=== PATIENT | female | born 1950 | race Caucasian/White ===

== ENCOUNTER 2016-08-21 15:37 | Observation (INO) | payer MEDICARE, OTHER ==
[2016-08-21 16:09] LABS: Hematocrit 38.4 % (37.0-47.0); Hemoglobin 12.8 gm/dL (12.5-16.0); Mean Cell Volume 94.6 fl (78-100); Mean Corpuscular Hemoglobin 31.5 pg (27-31); Mean Corpuscular Hgb Conc 33.3 g/dl (32-36); Mean Platelet Volume 9.4 fl (6.0-9.5); Neutrophil # 5.4 K/mm3 (1.3-6.0); Neutrophil % 61.4 % (42-75.0); Platelet Count 360 K/mm3 (150-450); Red Blood Count 4.06 M/mm3 (4.2-5.4); Red Cell Distribution Width 12.5 % (11.5-14.0); White Blood Count 8.7 K/mm3 (4.0-10.5)
[2016-08-21 16:20] LABS: INR 0.96 INR (0.90-1.10); Partial Thrombolplastin Time 24.5 Seconds (24-32)
[2016-08-21 16:26] LABS: ALT 45 U/L (19-67); AST 24 U/L (0-48); Albumin * 3.3 gm/dl (3.4-5.0); Alkaline Phosphatase * 93 U/L (50-170); Anion Gap 12.9 mmol/L (6.8-13.8); BUN/Creatinine Ratio 9.4 (9.0-21.6); Bilirubin, Total 0.2 mg/dL (0.0-1.1); Blood Urea Nitrogen 10 mg/dL (3-23); Calcium * 8.8 mg/dL (7.9-10.9); Carbon Dioxide 29.2 mmol/L (24-32.6); Chloride 107 mmol/L (97-106); Glucose * 99 mg/dL (70-110); Potassium 4.1 mmol/L (3.4-4.6); Sodium 145 mmol/L (132-142); Total Protein 7.1 gm/dL (6.2-8.2); Troponin I Less than 0.017 ng/ml (0.00-0.10)
--- OUTSIDE RECORDS SUMMARY | 2016-08-21 16:27 | XMS REPORT | Continuity of Care Document ---
:1950 Author Organization [employer] [place] [address] Care Team Providers Name Role Phone Rosario Cooper Primary Care Provider [phone] Source Comments This disclosure is being made pursuant to the [employer] program and maynot contain all information available regarding this patient.[employer] Active Allergies and Adverse Reactions Allergen Noted Date Severity Reactions Comments Cephalexin 01/13/2014 Other (See Comments) Metoprolol Tartrate 01/13/2014 Other (See Comments) Current Medications Be aware that medications may not be up to date as of this document. Alwaysverify current medications with the patient. Prescription Sig. Disp. Refills Start Date End Date Status ALPRAZolam (XANAX) 0.25 MG Take 0.25 mg by Active tablet mouth. aspirin low dose (ASPIRIN) Chew 81 mg by Active 81 MG CHEW mouth. lisinopril Take 20 mg by Active (PRINIVIL,ZESTRIL) 20 MG mouth. tablet vilazodone HCl (VIIBRYD) Take 40 mg by Active 40 MG TABS mouth. Active Problems No known active problems Social History Tobacco Use Types Packs/Day Years Used Date Current Every Day Smoker Last Filed Vital Signs Vital Sign Reading Time Taken Blood Pressure 122/76 01/13/2014 4:50 PM [employer] Pulse 95 01/13/2014 4:50 PM [employer] Temperature 36.4 C (97.6 F) 01/13/2014 4:50 PM [employer] Respiratory Rate 20 01/13/2014 4:50 PM [employer] Height 1.6 m (5' 3") 01/13/2014 4:50 PM [employer] Weight 74.617 kg (164 lb 8 oz) 01/13/2014 4:50 PM [employer] Body Mass Index 29.15 01/13/2014 4:50 PM [employer] Oxygen Saturation 95% 01/13/2014 4:50 PM [employer] Plan of Care Health Maintenance Due Date Last Done Comments Tetanus/Pertussis (1 - Tdap) 1968 Colonoscopy 08/16/1999 Mammogram 08/16/1999 Well Adult Visit 08/16/1999 Zoster Vaccine 60+ 2009 Bone Density 2014 Pneumococcal Low/Medium Risk 65+ (1 of 2 - PCV13) 2014 Influenza Immunization (#1) 2015 Results from Last 3 Months Not on file Insurance Payer Benefit Plan / Group Subscriber ID Type Phone Address [facility] [id number] [address] [place] [address] Home: [address] [place], [place] [id number] [place] [address]
--- NOTE | 2016-08-21 16:35 | ERNOTE ---
Chest Pain/Cardiac HPI Date of Service: 08/21/16 Chief Complaint: Chest Pain Time Seen by Provider: 08/21/16 16:21 Source: patient Exam Limitations: no limitations Immunizations: IMMUNIZATION HX Immunizations Up to Date Yes History of Influenza Vaccine Yes Allergies/Adverse Reactions: Allergies cephalexin Allergy (Verified 08/21/16 15:59) Home Medications: HOME MEDICATIONS ALPRAZolam [Xanax] 0.25 mg PO QID 08/21/16 [Last Taken Unknown] Diphenoxylate HCl/Atrop Sulf [Lomotil] 2.5 mg PO QID 08/21/16 [Last Taken Unknown] Donepezil HCl [Aricept] 2.5 mg PO QID 08/21/16 [Last Taken Unknown] Lisinopril [Prinivil] 20 mg PO DAILY 08/21/16 [Last Taken Unknown] Memantine HCl 10 mg PO BID 08/21/16 [Last Taken Unknown] Mirtazapine [Remeron] 30 mg PO DAILY 08/21/16 [Last Taken Unknown] Narrative: Pt. comes in with c/o chest pain for unknown length of time just prior to arrival. Pt. has dementia so is poor historian. Pt. denies any SOB, NVD, fever , recent illness. NH where pt. resides called EMS and EMS administered 2 Nitro prior to arrival and pain is resolved at this time. Review of Systems - Review of Systems Constitutional: Present: no symptoms reported. Absent: recent illness, fever, chills, fatigue, malaise EYE: Present: no symptoms reported ENT: Present: no symptoms reported Respiratory: Present: no symptoms reported. Absent: shortness of breath, cough , wheezing Cardiology: Present: chest pain. Absent: palpitations, edema Gastrointestinal/Abdominal: Present: no symptoms reported. Absent: nausea, vomiting, diarrhea Genitourinary: Present: no symptoms reported Musculoskeletal: Present: no symptoms reported. Absent: back pain, joint pain Skin: Present: no symptoms reported Neurological: Present: no symptoms reported. Absent: headache, dizziness/light- headedness, numbness, tingling All Other Systems: All systems neg except as marked - Patient's Past Medical History Patient History - Medical: Anemia, Anxiety, Dementia, Depression, UTI'S Patient History - Cardiac/Respiratory: Hypertension, Hyperlipidemia Patient History - Cancer: Lung - Social History Smoking Status: Former smoker - Immunizations Immunizations Up to Date: Yes History of Influenza Vaccine: Yes Physical Exam - Physical Exam General Appearance: Present: wd/wn, alert, no apparent distress Eye Exam: Normal inspection: bilateral, PERRL: bilateral, EOMI: bilateral Ears, Nose, Throat: Present: normal ENT inspection, normal pharynx Neck: Present: normal inspection, nontender. Absent: lymphadenopathy (R), lymphadenopathy (L) Respiratory: Present: no respiratory distress, normal breath sounds, no accessory muscle use, chest nontender, lungs clear Cardiovascular/Chest: Present: regular rate, rhythm, no murmur, normal peripheral pulses Gastrointestinal/Abdominal: Present: normal bowel sounds, nontender, nondistended, soft, no organomegaly Back Exam: Present: normal inspection Extremity Exam: Present: normal inspection Neurological Exam: Present: alert, normal mood/affect, no motor/sensory deficits , disoriented to time, disoriented to place Skin Exam: Present: normal color, warm/dry. Absent: pallor, skin rash ED Progress - Date and Time Seen: Date and Time: 08/21/16 16:[address] Lomeli and pt. will be admitted for rule out AR - Results and Orders Patient's Lab Results:: I have reviewed the patient's lab results. - Vital Signs Patient's Vital Signs:: I have reviewed the patient's vital signs. Vital Signs: Vital Signs 08/21/16 08/21/16 08/21/16 15:42 15:49 16:18 Pulse Rate 75 76 85 Respiratory 14 12 12 Rate Blood Pressure 126/72 126/72 145/75 O2 Sat by Pulse 94 97 Oximetry - EKG EKG: NSR EKG read: Reviewed by me EKG Comments: interp by Dr Martel - Progress/Reassessment Chief Complaint: Chest Pain Progress:: Improved Departure - Departure Clinical Impression: Chest pain Qualifiers: Chest pain type: precordial pain Qualified Code(s): R07.2 - Precordial pain Disposition: [facility] Condition: Fair
--- OUTSIDE RECORDS SUMMARY | 2016-08-21 16:57 | XMS REPORT | Continuity of Care Document ---
:1950 Author Organization [employer] [place] [address] Care Team Providers Name Role Phone Rosario Cooper Primary Care Provider [phone] Source Comments This disclosure is being made pursuant to the [employer] program and maynot contain all information available regarding this patient.[employer] Active Allergies and Adverse Reactions Allergen Noted [...] Taken Blood Pressure 122/76 01/13/2014 4:50 PM [employer] Pulse 95 01/13/2014 4:50 PM [employer] Temperature 36.4 C (97.6 F) 01/13/2014 4:50 PM [employer] Respiratory Rate 20 01/13/2014 4:50 PM [employer] Height 1.6 m (5' 3") 01/13/2014 4:50 PM [employer] Weight 74.617 kg (164 lb 8 oz) 01/13/2014 4:50 PM [employer] Body Mass Index 29.15 01/13/2014 4:50 PM [employer] Oxygen Saturation 95% 01/13/2014 4:50 PM [employer] Plan of Care Health Maintenance Due Date Last Done Comments Tetanus/Pertussis (1 - Tdap) 1968 Colonoscopy 08/16/1999 Mammogram 08/16/1999 Well Adult Visit 08/16/1999 Zoster Vaccine 60+ 2009 Bone Density 2014 Pneumococcal Low/Medium Risk 65+ (1 of 2 - PCV13) 2014 Influenza Immunization (#1) 2015 Results from Last 3 Months Not on file Insurance Payer Benefit Plan / Group Subscriber ID Type Phone Address [facility] [id number] [address] [place] [address] Home: [address] [place], [place] [id number] [place] [address]
[2016-08-21] MEDS ORDERED: NITROGLYCERIN 0.4 MG/TAB BTL SL PRN (17:00)
[2016-08-21] MEDS ORDERED: MAGNESIUM HYDROXIDE 30 ML UDC PO PRN (19:44)
[2016-08-21] MEDS ORDERED: NYSTATIN 15 APPL BTL TP PRN (19:44)
[2016-08-21] MEDS ORDERED: ACETAMINOPHEN 325 MG TABLET PO PRN (19:44)
[2016-08-21] MEDS ORDERED: ALPRAZolam 1 MG TABLET PO PRN (19:44)
--- NOTE | 2016-08-21 20:45 | HP ---
<Blanca Asif - Last Filed: 08/21/16 23:16> Chief Complaint - Chief Complaint Date of Service: 08/21/16 Time of Service: 20:45 Chief Complaint: chest pain History of Present Illness: Hailee is a 66 year old female patient of Dr Aburto with a PMH of anxiety/ depression, HTN, HLD, dementia and history of lung cancer who presented to ER with c/o chest pain. Patient is pleasantly confused with a history of dementia and therefore is a poor historian but is able to tell be that the chest pain was sharp and she is not longer having chest pain at this time. denies any radiation of the chest pain. denies n/v or dyspnea. Patient to be admitted for chest pain of uncertain origin for serial troponins/ ekg with overnight telemetry monitoring. - Patient's Past Medical History Patient History - Medical: Anemia, Anxiety, Dementia, Depression, UTI'S, Other Patient History - Cardiac/Respiratory: Hypertension, Hyperlipidemia, Other Patient History - Cancer: Lung Patient History - Surgical Procedures: Other Patient History - Other: None LMP (females 10-50): Menopausal - Family History Parents Family History - Medical: History Unknown Family History - Cardiac/Respiratory: History Unknown Family History - Cancer: History Unknown - Social History Living Situations: group home Abuse History: No History of abuse Psych History: Hx of Anxiety, Hx of Depression Smoking Status: Former smoker Have you smoked in the past 12 months: No Do you dip or chew tobacco: No Smoking Stop Date: 02/13/10 Alcohol Use: none Drug Use: none - Immunizations Immunizations Up to Date: Yes History of Influenza Vaccine: Yes Review Of Systems (GEN) - Review of Systems Generalized/Overall Review: Present: No Symptoms Reported EENTM: Present: No Symptoms Reported Respiratory: Present: No Symptoms Reported Cardiac: Present: Chest Pain Abdominal: Present: No Symptoms Reported Genitourinary: Present: No Symptoms Reported Musculoskeletal: Present: No Symptoms Reported Neurological: Present: No Symptoms Reported Skin: Present: No Symptoms Reported Endocrine: Present: No Symptoms Reported Misc: All systems neg except as marked Immunizations: IMMUNIZATION HX Immunizations Up to Date Yes History of Influenza Vaccine Yes Allergies/Adverse Reactions: Allergies Allergy/AdvReac Type Severity Reaction Status Date / Time cephalexin [From Keflex] AdvReac Verified 08/21/16 17:50 metoprolol [From Toprol XL] AdvReac Verified 08/21/16 17:50 Home Medications: HOME MEDICATIONS ALPRAZolam [Xanax] 0.25 mg PO QID 08/21/16 [Last Taken Unknown] ALPRAZolam [Xanax] 1 mg PO TID PRN 08/21/16 [Last Taken Unknown] Acetaminophen [Tylenol] 650 mg PO Q6H PRN 08/21/16 [Last Taken Unknown] Acetaminophen [Tylenol] 650 mg PO QAM 08/21/16 [Last Taken Unknown] Dimethicone/Zinc Oxide [Yaritza Protect Cream] 1 appl TP PRN PRN 08/21/16 [Last Taken Unknown] Diphenoxylate HCl/Atrop Sulf [Lomotil] 2.5 mg PO QID 08/21/16 [Last Taken Unknown] Donepezil HCl [Aricept] 10 mg PO DAILY 08/21/16 [Last Taken Unknown] Lisinopril [Prinivil] 20 mg PO DAILY 08/21/16 [Last Taken Unknown] Magnesium Hydroxide [Milk of Magnesia] 30 ml PO DAILY PRN 08/21/16 [Last Taken Unknown] Memantine HCl 10 mg PO BID 08/21/16 [Last Taken Unknown] Mirtazapine [Remeron] 30 mg PO DAILY 08/21/16 [Last Taken Unknown] Nystatin [Mycostatin Powder] 1 appl TP BID PRN 08/21/16 [Last Taken Unknown] Oxymetazoline HCl [Nasal [place]] 2 spray INH BID PRN 08/21/16 [Last Taken Unknown ] Petrolatum,White [Aquaphor] 1 appl TP BID 08/21/16 [Last Taken Unknown] Pseudoephedrine HCl [Sudogest] 30 mg PO Q6H PRN 08/21/16 [Last Taken Unknown] Vilazodone HCl [Viibryd] 40 mg PO DAILY 08/21/16 [Last Taken Unknown] Exam - Exam Vital Signs: Vital Signs - Last Taken Temp 36.9 C 08/21/16 17:20 Pulse 76 08/21/16 17:20 Resp 20 08/21/16 17:20 BP 172/95 08/21/16 17:20 Pulse Ox 95 08/21/16 17:20 Constitutional: Present: Cooperative, No distress, Obese ENT Exam: Present: hearing grossly normal Eye Exam: bilateral eye: normal inspection Neck: Present: supple Back Exam: Present: no CVA tenderness, no vertebral tenderness Breasts: Present: Exam deferred Respiratory: Present: lungs clear, normal breath sounds, no respiratory distress , no accessory muscle use Cardiovascular/Chest: Present: normal peripheral pulses, regular rate, rhythm, no chest tenderness, no murmur Peripheral Pulses: dorsalis-pedis (R): 2+, dorsalis-pedis (L): 2+, radial (R): 2 +, radial (L): 2+ Abdomen: Present: soft, nontender, nondistended, obese /Rectal: Present: Exam deferred Extremity: Present: non-tender, normal inspection, no calf tenderness Skin Exam: Present: warm/dry, no cyanosis, pallor Diagnostic Studies: Laboratory Results WBC 8.7 K/mm3 (4.0-10.5) 08/21/16 16:00 RBC 4.06 M/mm3 (4.2-5.4) L 08/21/16 16:00 Hgb 12.8 gm/dL (12.5-16.0) 08/21/16 16:00 Hct 38.4 % (37.0-47.0) 08/21/16 16:00 MCV 94.6 fl (78-100) 08/21/16 16:00 MCH 31.5 pg (27-31) H 08/21/16 16:00 MCHC 33.3 g/dl (32-36) 08/21/16 16:00 RDW 12.5 % (11.5-14.0) 08/21/16 16:00 Plt Count 360 K/mm3 (150-450) 08/21/16 16:00 MPV 9.4 fl (6.0-9.5) 08/21/16 16:00 Immature Gran % (Auto) 0.30 % (0.001-0.429) 08/21/16 16:00 Immature Gran # (Auto) 0.03 K/mm3 (0.000-0.0310) 08/21/16 16:00 Neutrophils % 61.4 % (42-75.0) 08/21/16 16:00 Lymphocytes % 27.6 % (20-51) 08/21/16 16:00 Monocytes % 9.2 % (0.0-9) H 08/21/16 16:00 Eosinophils % 0.9 % (0.0-3.0) 08/21/16 16:00 Basophils % 0.6 % (0.0-1.0) 08/21/16 16:00 Nucleated RBC % 0.0 k/mm3 (0-1) 08/21/16 16:00 Neutrophils # 5.4 K/mm3 (1.3-6.0) 08/21/16 16:00 Lymphocytes # 2.4 k/mm3 (1.5-3.5) 08/21/16 16:00 Monocytes # 0.8 k/mm3 (0.0-1.0) 08/21/16 16:00 Eosinophils # 0.1 k/mm3 (0.0-0.7) 08/21/16 16:00 Absolute Basophils 0.1 k/mm3 (0.0-0.1) 08/21/16 16:00 PT 10.0 Seconds (9.4-11.4) 08/21/16 16:00 INR (Anticoag Therapy) 0.96 INR (0.90-1.10) 08/21/16 16:00 PTT ([facility]) 24.5 Seconds (24-32) 08/21/16 16:00 Sodium 145 mmol/L (132-142) H 08/21/16 16:00 Plasma Sodium 145 mmol/L (130-142) H 08/21/16 16:00 Potassium 4.1 mmol/L (3.4-4.6) 08/21/16 16:00 Chloride 107 mmol/L (97-106) H 08/21/16 16:00 Carbon Dioxide 29.2 mmol/L (24-32.6) 08/21/16 16:00 Anion Gap 12.9 mmol/L (6.8-13.8) 08/21/16 16:00 BUN 10 mg/dL (3-23) 08/21/16 16:00 Creatinine 1.06 mg/dL (0.4-1.4) 08/21/16 16:00 Est GFR (Non-Af Amer) 55 mL/min (60-130) L D 08/21/16 16:00 BUN/Creatinine Ratio 9.4 (9.0-21.6) 08/21/16 16:00 Random Glucose 99 mg/dL (70-110) 08/21/16 16:00 Calcium 8.8 mg/dL (7.9-10.9) 08/21/16 16:00 Calcium Adj for Albumin 9.0 mg/dL (8.4-10.2) 08/21/16 16:00 Total Bilirubin 0.2 mg/dL (0.0-1.1) 08/21/16 16:00 AST 24 U/L (0-48) 08/21/16 16:00 ALT 45 U/L (19-67) 08/21/16 16:00 Alkaline Phosphatase 93 U/L (50-170) 08/21/16 16:00 Troponin I Less than 0.017 ng/ml (0.00-0.10) 08/21/16 16:00 Total Protein 7.1 gm/dL (6.2-8.2) 08/21/16 16:00 Albumin 3.3 gm/dl (3.4-5.0) L 08/21/16 16:00 Assessment/Plan - Narrative Narrative: Chest pain of uncertain origin - currently chest pain free - monitor on tele - trend trop / ekg - if trop / ekg wnl, plan d/c in am - recommend echo and stress test outpatient - vitals signs q 4 hours dementia - stable but makes patient a poor historian - continue home meds anxiety / depression - continue home meds - prn anti-anxiet meds also ordered HTN - vital signs q 4 hours Code status: Full code VTE: early ambulation gi proph: protonix po. - Assessment/Plan (1) Chest pain of uncertain etiology Problem: Acute (2) Dementia Problem: Chronic QualifierTitle: Dementia type: unspecified type Dementia behavioral disturbance: without behavioral disturbance Qualified Code(s): F03.90 - Unspecified dementia without behavioral disturbance (3) Anxiety and depression Problem: Chronic (4) HTN (hypertension) Problem: Chronic QualifierTitle: Hypertension type: essential hypertension Qualified Code( s): I10 - Essential (primary) hypertension (5) HLD (hyperlipidemia) Problem: Chronic QualifierTitle: Hyperlipidemia type: unspecified Qualified Code(s): E78.5 - Hyperlipidemia, unspecified <Wellington Estrada - Last Filed: 08/22/16 12:40> Immunizations: IMMUNIZATION HX Immunizations Up to Date Yes History of Influenza Vaccine Yes Exam - Exam Vital Signs: Vital Signs - Last Taken Temp 36.6 C 08/22/16 10:18 Pulse 99 08/22/16 11:16 Resp 20 08/22/16 10:18 BP 148/87 08/22/16 10:18 Pulse Ox 94 08/22/16 10:18 Diagnostic Studies: Laboratory Results WBC 8.7 K/mm3 (4.0-10.5) 08/21/16 16:00 RBC 4.06 M/mm3 (4.2-5.4) L 08/21/16 16:00 Hgb 12.8 gm/dL (12.5-16.0) 08/21/16 16:00 Hct 38.4 % (37.0-47.0) 08/21/16 16:00 MCV 94.6 fl (78-100) 08/21/16 16:00 MCH 31.5 pg (27-31) H 08/21/16 16:00 MCHC 33.3 g/dl (32-36) 08/21/16 16:00 RDW 12.5 % (11.5-14.0) 08/21/16 16:00 Plt Count 360 K/mm3 (150-450) 08/21/16 16:00 MPV 9.4 fl (6.0-9.5) 08/21/16 16:00 Immature Gran % (Auto) 0.30 % (0.001-0.429) 08/21/16 16:00 Immature Gran # (Auto) 0.03 K/mm3 (0.000-0.0310) 08/21/16 16:00 Neutrophils % 61.4 % (42-75.0) 08/21/16 16:00 Lymphocytes % 27.6 % (20-51) 08/21/16 16:00 Monocytes % 9.2 % (0.0-9) H 08/21/16 16:00 Eosinophils % 0.9 % (0.0-3.0) 08/21/16 16:00 Basophils % 0.6 % (0.0-1.0) 08/21/16 16:00 Nucleated RBC % 0.0 k/mm3 (0-1) 08/21/16 16:00 Neutrophils # 5.4 K/mm3 (1.3-6.0) 08/21/16 16:00 Lymphocytes # 2.4 k/mm3 (1.5-3.5) 08/21/16 16:00 Monocytes # 0.8 k/mm3 (0.0-1.0) 08/21/16 16:00 Eosinophils # 0.1 k/mm3 (0.0-0.7) 08/21/16 16:00 Absolute Basophils 0.1 k/mm3 (0.0-0.1) 08/21/16 16:00 PT 10.0 Seconds (9.4-11.4) 08/21/16 16:00 INR (Anticoag Therapy) 0.96 INR (0.90-1.10) 08/21/16 16:00 PTT ([facility]) 24.5 Seconds (24-32) 08/21/16 16:00 Sodium 145 mmol/L (132-142) H 08/21/16 16:00 Plasma Sodium 145 mmol/L (130-142) H 08/21/16 16:00 Potassium 4.1 mmol/L (3.4-4.6) 08/21/16 16:00 Chloride 107 mmol/L (97-106) H 08/21/16 16:00 Carbon Dioxide 29.2 mmol/L (24-32.6) 08/21/16 16:00 Anion Gap 12.9 mmol/L (6.8-13.8) 08/21/16 16:00 BUN 10 mg/dL (3-23) 08/21/16 16:00 Creatinine 1.06 mg/dL (0.4-1.4) 08/21/16 16:00 Est GFR (Non-Af Amer) 55 mL/min (60-130) L D 08/21/16 16:00 BUN/Creatinine Ratio 9.4 (9.0-21.6) 08/21/16 16:00 Random Glucose 99 mg/dL (70-110) 08/21/16 16:00 Calcium 8.8 mg/dL (7.9-10.9) 08/21/16 16:00 Calcium Adj for Albumin 9.0 mg/dL (8.4-10.2) 08/21/16 16:00 Total Bilirubin 0.2 mg/dL (0.0-1.1) 08/21/16 16:00 AST 24 U/L (0-48) 08/21/16 16:00 ALT 45 U/L (19-67) 08/21/16 16:00 Alkaline Phosphatase 93 U/L (50-170) 08/21/16 16:00 Troponin I Less than 0.017 ng/ml (0.00-0.10) 08/21/16 21:55 Total Protein 7.1 gm/dL (6.2-8.2) 08/21/16 16:00 Albumin 3.3 gm/dl (3.4-5.0) L 08/21/16 16:00 Assessment/Plan - Procedures Results: History unreliable, but I agree with the plan to rule out as possible ischemic cause for chest pain. I supervised our nurse practitioner hospitalist care for this patient.
[2016-08-21] MEDS ORDERED: [UNRECOGNIZED DRUG - OTHER] TP SCH (21:00)
[2016-08-21] MEDS: MEMANTINE HCL 10 MG TABLET PO SCH (21:39)
[2016-08-21] MEDS: ALPRAZolam 0.25 MG TABLET PO SCH (21:39)
[2016-08-22] MEDS ORDERED: PANTOPRAZOLE SODIUM 40 MG TABLET.EC PO SCH (07:00)
[2016-08-22] MEDS ORDERED: MIRTAZAPINE 15 MG TABLET PO SCH (09:00)
[2016-08-22] MEDS ORDERED: HYDROPHILIC OINTMENT 454 APPL JAR TP SCH (09:00)
[2016-08-22] MEDS ORDERED: LISINOPRIL 20 MG TABLET PO SCH (09:00)
[2016-08-22] MEDS: MEMANTINE HCL 10 MG TABLET PO SCH (09:00)
[2016-08-22] MEDS ORDERED: DONEPEZIL HCL 10 MG TABLET PO SCH (09:00)
[2016-08-22] MEDS: ALPRAZolam 0.25 MG TABLET PO SCH ×2 (09:01→13:46)
[2016-08-22 10:19] VITALS: BP 148/87
--- NOTE | 2016-08-22 12:49 | DS ---
(1) Chest pain of uncertain etiology Problem: Acute (2) Anxiety and depression Problem: Chronic (3) Dementia Problem: Chronic Qualifiers: Dementia type: unspecified type Dementia behavioral disturbance: without behavioral disturbance Qualified Code(s): F03.90 - Unspecified dementia without behavioral disturbance (4) HLD (hyperlipidemia) Problem: Chronic Qualifiers: Hyperlipidemia type: unspecified Qualified Code(s): E78.5 - Hyperlipidemia , unspecified (5) HTN (hypertension) Problem: Chronic Qualifiers: Hypertension type: essential hypertension Qualified Code(s): I10 - Essential (primary) hypertension Description of Stay: Remained stable and comfortable while in the hospital. No recurrence of chest pain. Sequential EKGs and troponins not consistent with ischemic heart disease. She may return to [facility]. Procedures Performed: none Discharge Disposition: [facility] Disposition: [facility] [place] Condition: Good Discharge Activity: Activity as tolerated Discharge Diet: General/regular food Referrals: Wellington Estrada MD [Primary Care Provider] - Problem Oriented Discharge Instructions to Patient/Family: Chest Pain Observation Complete Home Medications List: Complete Home Medication List: ALPRAZolam [Xanax] 0.25 mg PO QID 08/21/16 ALPRAZolam [Xanax] 1 mg PO TID PRN 08/21/16 Acetaminophen [Tylenol] 650 mg PO Q6H PRN 08/21/16 Dimethicone/Zinc Oxide [Yaritza Protect Cream] 1 appl TP PRN PRN 08/21/16 Donepezil HCl [Aricept] 10 mg PO DAILY 08/21/16 Lisinopril [Prinivil] 20 mg PO DAILY 08/21/16 Magnesium Hydroxide [Milk of Magnesia] 30 ml PO DAILY PRN 08/21/16 Memantine HCl 10 mg PO BID 08/21/16 Mirtazapine [Remeron] 30 mg PO DAILY 08/21/16 Nystatin [Mycostatin Powder] 1 appl TP BID PRN 08/21/16 Petrolatum,White [Aquaphor] 1 appl TP BID 08/21/16 Vilazodone HCl [Viibryd] 40 mg PO DAILY 08/21/16
[2016-08-22] MEDS ORDERED: ASPIRIN 81 MG TAB.CHEW PO SCH (17:01)
== END 2016-08-22 14:10 ==
LOC: ER 15:37 → MS 16:53
PROVIDERS: ADMIT Internal Medicine; ATTEND Allergy & Immunology
DX: R07.2 Precordial pain (principal); F03.90 Unspecified dementia, unspecified severity, without behavioral disturbance, psychotic disturbance, mood disturbance, and anxiety; F41.8 Other specified anxiety disorders; I10 Essential (primary) hypertension; E78.5 Hyperlipidemia, unspecified
CPT/HCPCS: 36415; 71010; 80053; 84484; 85025; 85610; 85730; 87045; 87046; 87081; 93005; 99283; G0378

== ENCOUNTER 2016-10-27 12:21 | Observation (INO) | payer MEDICARE, OTHER ==
[2016-10-27] MEDS ORDERED: NORMAL SALINE 1,000 ML IV ONE (12:47)
[2016-10-27 13:15] LABS: Hematocrit 36.7 % (37.0-47.0); Hemoglobin 12.1 gm/dL (12.5-16.0); Mean Cell Volume 94.1 fl (78-100); Mean Platelet Volume 9.6 fl (6.0-9.5); Neutrophil # 11.6 K/mm3 (1.3-6.0); Neutrophil % 78.8 % (42-75.0); Platelet Count 351 K/mm3 (150-450); Red Cell Distribution Width 12.2 % (11.5-14.0); White Blood Count 14.8 K/mm3 (4.0-10.5)
[2016-10-27 13:37] LABS: Albumin * 2.9 gm/dl (3.4-5.0); Anion Gap 15.3 mmol/L (6.8-13.8); BUN/Creatinine Ratio 25.3 (9.0-21.6); Bilirubin, Total 1.1 mg/dL (0.0-1.1); Ca. Corrected For Albumin 9.7 mg/dL (8.4-10.2); Calcium * 9.1 mg/dL (7.9-10.9); Carbon Dioxide 22.7 mmol/L (24-32.6); TSH * 0.974 uIU/mL (0.358-3.74); Total Protein 7.6 gm/dL (6.2-8.2)
[2016-10-27 13:46] LABS: Urine Bilirubin Negative (NEGATIVE); Urine Blood 50 /ul (NEGATIVE); Urine Ketone 5 mg/dL (NEGATIVE); Urine Nitrite Negative (NEGATIVE); Urine Protein 30 mg/dL (NEGATIVE); Urine Specific Gravity >=1.030 SP.GR. (1.005-1.010); Urine Urobilinogen >=8.0 EU/dl (NORMAL); Urine pH 5.5 pH (5.0-7.0)
[2016-10-27] MEDS ORDERED: LEVOFLOXACIN/D5W 500 MG/100 ML BAG IV SCH (14:00)
[2016-10-27] MEDS ORDERED: NORMAL SALINE 1,000 ML IV PRN ×2 (14:02→16:40)
[2016-10-27 14:10] LABS: Urine Appearance Cloudy; Urine Bacteria 2+; Urine Color Dark Yellow; Urine RBC 0-5 /hpf (0-5)
--- NOTE | 2016-10-27 14:16 | ERNOTE ---
Neuro HPI ER Record Presenting Symptoms: confusion Time Seen by Provider: 10/27/16 12:44 Source: EMR, EMS, RN notes reviewed - patient has severe dementia however snf staff where the patient resides has noticed that she is more "out of it" than is normal for this patient. They deny any fevers or chills she was begun this morning on antibiotics for a UTI. Immunizations: IMMUNIZATION HX Immunizations Up to Date Yes History of Influenza Vaccine Yes Allergies/Adverse Reactions: Allergies Allergy/AdvReac Type Severity Reaction Status Date / Time cephalexin [From Keflex] AdvReac Verified 08/21/16 17:50 metoprolol [From Toprol XL] AdvReac Verified 08/21/16 17:50 Home Medications: HOME MEDICATIONS ALPRAZolam [Xanax] 0.25 mg PO QID 08/21/16 [Last Taken Unknown] ALPRAZolam [Xanax] 1 mg PO TID PRN 08/21/16 [Last Taken Unknown] Acetaminophen [Tylenol] 650 mg PO Q6H PRN 08/21/16 [Last Taken Unknown] Dimethicone/Zinc Oxide [Yaritza Protect Cream] 1 appl TP PRN PRN 08/21/16 [Last Taken Unknown] Donepezil HCl [Aricept] 10 mg PO DAILY 08/21/16 [Last Taken Unknown] Lisinopril [Prinivil] 20 mg PO DAILY 08/21/16 [Last Taken Unknown] Magnesium Hydroxide [Milk of Magnesia] 30 ml PO DAILY PRN 08/21/16 [Last Taken Unknown] Memantine HCl 10 mg PO BID 08/21/16 [Last Taken Unknown] Mirtazapine [Remeron] 30 mg PO DAILY 08/21/16 [Last Taken Unknown] Nystatin [Mycostatin Powder] 1 appl TP BID PRN 08/21/16 [Last Taken Unknown] Petrolatum,White [Aquaphor] 1 appl TP BID 08/21/16 [Last Taken Unknown] Vilazodone HCl [Viibryd] 40 mg PO DAILY 08/21/16 [Last Taken Unknown] - History of Present Illness Narrative: Patient has more confusion than usual. History is per snf staff. There is no history of fever however patient was recently diagnosed with a UTI and placed on Levaquin this morning Review of Systems - Narrative Narrative: Review of systems is extremely difficult in this patient as she says no to everything, this patient is severely demented. No family or residential nurse is available at bedside to help out with review of systems. - Review of Systems Constitutional: Present: weakness, malaise EYE: Present: no symptoms reported ENT: Present: no symptoms reported Respiratory: Present: no symptoms reported Cardiology: Present: no symptoms reported Gastrointestinal/Abdominal: Present: no symptoms reported Genitourinary: Present: no symptoms reported - Patient's Past Medical History Patient History - Medical: Anemia, Anxiety, Dementia, Depression, UTI'S, Other Patient History - Cardiac/Respiratory: Hypertension, Hyperlipidemia, Other Patient History - Cancer: Lung Patient History - Surgical Procedures: Other Patient History - Other: None LMP (females 10-50): Menopausal - Family History Parents Family History - Medical: History Unknown Family History - Cardiac/Respiratory: History Unknown Family History - Cancer: History Unknown - Social History Living Situations: snf Abuse History: No History of abuse Psych History: Hx of Anxiety, Hx of Depression Alcohol Use: none Drug Use: none - Immunizations Immunizations Up to Date: Yes History of Influenza Vaccine: Yes Physical Exam - Physical Exam General Appearance: Present: wd/wn, other - patient is morbidly obese she has dementia she stares at the wall she follows simple commands she does not speak Head Exam: Present: normal inspection, no evidence of injury Eye Exam: Normal inspection: bilateral, PERRL: bilateral, EOMI: bilateral Ears, Nose, Throat: Present: normal ENT inspection Neck: Present: normal inspection, nontender, supple, full range of motion Respiratory: Present: no respiratory distress, normal breath sounds, no accessory muscle use, chest nontender, lungs clear Cardiovascular/Chest: Present: regular rate, rhythm, no murmur, normal peripheral pulses Gastrointestinal/Abdominal: Present: normal bowel sounds, soft, other - abdomen is obese Back Exam: Present: normal inspection Extremity Exam: Present: normal inspection, normal range of motion Neurological Exam: Present: other - patient is awake she speaks simple simple sentences when she is not sleeping otherwise she does not engage in speech as she is demented ED Progress - Vital Signs Vital Signs: Vital Signs 10/27/16 10/27/16 12:21 13:16 Temperature 38.2 C H 38.2 C H Pulse Rate 111 H 112 H Respiratory 19 Rate Blood Pressure 132/70 109/58 O2 Sat by Pulse 100 100 Oximetry - Progress/Reassessment Chief Complaint: Altered Mental Status Plan - Plan Plan: Since left gases is 2.1 at this time. At this time we will administer normal saline 30 mils per kilogram IV and Levaquin 500 mg IV blood cultures are pending Dr. Ely Manzanares was consultative intercourse of this patient and he will graciously admit the patient to the floor for sepsis and possible urosepsis. Departure Clinical Impression: Sepsis Qualifiers: Sepsis type: sepsis due to unspecified organism Qualified Code(s): A41.9 - Sepsis, unspecified organism - Departure Disposition: [facility] Condition: Fair Referrals: Wellington Estrada MD [Primary Care Provider] -
[2016-10-27] MEDS ORDERED: MAGNESIUM HYDROXIDE 30 ML UDC PO PRN (16:03)
[2016-10-27] MEDS ORDERED: ALPRAZolam 1 MG TABLET PO PRN (16:03)
[2016-10-27] MEDS ORDERED: ZINC OXIDE 60 APPL TUBE TP PRN (16:03)
[2016-10-27] MEDS ORDERED: ACETAMINOPHEN 325 MG TABLET PO PRN (16:03)
[2016-10-27] MEDS ORDERED: NYSTATIN 15 APPL BTL TP PRN (16:03)
[2016-10-27] MEDS ORDERED: ALPRAZolam 0.25 MG TABLET PO SCH (17:00)
[2016-10-27] MEDS ORDERED: ENOXAPARIN SODIUM 40 MG/0.4 ML SYRG SC SCH (18:00)
--- NOTE | 2016-10-27 18:26 | HP ---
Chief Complaint - Chief Complaint Date of Service: 10/27/16 Time of Service: 18:19 Chief Complaint: Fever History of Present Illness: This is a 66 year old demented resident of [facility] [place]. She is demented and poorly responsive. Today she was more confused than normal, has blood in her urine and a temperature of 100.7. She was brought by ambulance to the [facility] ER where a diagnosis of UTI was made. Cultures were obtained, she was given IV antibiotics and IV fluids. Selected Entries 10/27/16 12:21 Temperature 38.2 C H Temperature Temporal Artery Source Scan Pulse Rate 111 H Blood Pressure 90 Mean Laboratory Tests 10/27/16 10/27/16 13:15 13:15 WBC 14.8 H Lactic Acid, Venous 2.1 H* - Patient's Past Medical History Patient History - Medical: Anemia, Anxiety, Dementia, Depression, UTI'S Patient History - Cardiac/Respiratory: Hypertension, Hyperlipidemia, Other Patient History - Cancer: Lung Patient History - Surgical Procedures: Other Patient History - Other: None LMP (females 10-50): Menopausal - Family History Parents Family History - Medical: History Unknown Family History - Cardiac/Respiratory: History Unknown Family History - Cancer: History Unknown - Social History Living Situations: [facility] Abuse History: No History of abuse Psych History: Hx of Anxiety, Hx of Depression Smoking Status: Former smoker Have you smoked in the past 12 months: No Alcohol Use: none Drug Use: none - Immunizations Immunizations Up to Date: Yes History of Influenza Vaccine: Yes Review Of Systems (GEN) - Review of Systems Generalized/Overall Review: Present: No Symptoms Reported - can't provide, demented. Immunizations: IMMUNIZATION HX Immunizations Up to Date Yes History of Influenza Vaccine Yes Allergies/Adverse Reactions: Allergies Allergy/AdvReac Type Severity Reaction Status Date / Time cephalexin [From Keflex] AdvReac Verified 10/27/16 16:26 metoprolol [From Toprol XL] AdvReac Verified 10/27/16 16:26 Home Medications: HOME MEDICATIONS ALPRAZolam [Xanax] 1 mg PO TID PRN 08/21/16 [Last Taken Unknown] Mirtazapine [Remeron] 30 mg PO DAILY 08/21/16 [Last Taken Unknown] ALPRAZolam [Xanax] 0.5 mg PO QID 10/27/16 [Last Taken Unknown] Aspirin [Aspirin EC] 325 mg PO DAILY 10/27/16 [Last Taken Unknown] Atorvastatin Calcium 40 mg PO DAILY 10/27/16 [Last Taken Unknown] Donepezil HCl [Aricept] 10 mg PO DAILY 10/27/16 [Last Taken Unknown] Gentamicin Sulfate [Gentamicin 0.3% Ophthalmic Solution] 1 drop OP HS 10/27/16 [ Last Taken Unknown] Isosorbide Mononitrate [Imdur] 30 mg PO DAILY 10/27/16 [Last Taken Unknown] Lisinopril [Zestril] 20 mg PO DAILY 10/27/16 [Last Taken Unknown] Memantine HCl [Namenda] 10 mg PO DAILY 10/27/16 [Last Taken Unknown] Vilazodone HCl [Viibryd] 40 mg PO DAILY 10/27/16 [Last Taken Unknown] Exam - Exam Vital Signs: Vital Signs - Last Taken Selected Entries 10/27/16 15:42 Temperature 36.8 C Temperature Temporal Artery Source Scan Pulse Rate 93 Pulse Rhythm Regular Pulse Strength Normal Respiratory 20 Rate Respiratory Normal Depth Respiratory Normal Effort Non-Labored Respiratory Normal Pattern Blood Pressure 104/59 Blood Pressure Supine Position O2 Sat by Pulse 95 Oximetry Oxygen Delivery Room Air Method Constitutional: Present: Alert, Well developed, No distress, Obese ENT Exam: Present: normal ENT inspection Eye Exam: bilateral eye: normal inspection, PERRL, EOMI Neck: Present: normal inspection Back Exam: Present: normal inspection, no CVA tenderness, no vertebral tenderness Respiratory: Present: normal breath sounds, no respiratory distress Cardiovascular/Chest: Present: regular rate, rhythm, no murmur Abdomen: Present: Normal bowel sounds, soft, nontender, nondistended, no rebound tenderness, no hepatospenomegaly, no masses, obese Extremity: Present: normal inspection, no pedal edema Skin Exam: Present: normal color, warm/dry, no cyanosis Lymphatic: Present: no adenopathy Neurologic: Present: alert Appearance: Present: appropriate appearance, neat, disheveled, impaired insight , impaired recent memory, impaired remote memory Eye contact: Present: belligerent, uncooperative. Absent: cooperative Thoughts: Present: incoherent Diagnostic Studies: Laboratory Results WBC 14.8 K/mm3 (4.0-10.5) H 10/27/16 13:15 RBC 3.90 M/mm3 (4.2-5.4) L 10/27/16 13:15 Hgb 12.1 gm/dL (12.5-16.0) L 10/27/16 13:15 Hct 36.7 % (37.0-47.0) L 10/27/16 13:15 MCV 94.1 fl (78-100) 10/27/16 13:15 MCH 31.0 pg (27-31) 10/27/16 13:15 MCHC 33.0 g/dl (32-36) 10/27/16 13:15 RDW 12.2 % (11.5-14.0) 10/27/16 13:15 Plt Count 351 K/mm3 (150-450) 10/27/16 13:15 MPV 9.6 fl (6.0-9.5) H 10/27/16 13:15 Immature Gran % (Auto) 0.50 % (0.001-0.429) H 10/27/16 13:15 Immature Gran # (Auto) 0.07 K/mm3 (0.000-0.0310) H 10/27/16 13:15 Neutrophils % 78.8 % (42-75.0) H 10/27/16 13:15 Lymphocytes % 10.7 % (20-51) L 10/27/16 13:15 Monocytes % 9.5 % (0.0-9) H 10/27/16 13:15 Eosinophils % 0.2 % (0.0-3.0) 10/27/16 13:15 Basophils % 0.3 % (0.0-1.0) 10/27/16 13:15 Nucleated RBC % 0.0 k/mm3 (0-1) 10/27/16 13:15 Neutrophils # 11.6 K/mm3 (1.3-6.0) H 10/27/16 13:15 Lymphocytes # 1.6 k/mm3 (1.5-3.5) 10/27/16 13:15 Monocytes # 1.4 k/mm3 (0.0-1.0) H 10/27/16 13:15 Eosinophils # 0.0 k/mm3 (0.0-0.7) 10/27/16 13:15 Absolute Basophils 0.1 k/mm3 (0.0-0.1) 10/27/16 13:15 Sodium 138 mmol/L (132-142) 10/27/16 13:15 Plasma Sodium 138 mmol/L (130-142) 10/27/16 13:15 Potassium 4.0 mmol/L (3.4-4.6) 10/27/16 13:15 Chloride 104 mmol/L (97-106) 10/27/16 13:15 Carbon Dioxide 22.7 mmol/L (24-32.6) L 10/27/16 13:15 Anion Gap 15.3 mmol/L (6.8-13.8) H 10/27/16 13:15 BUN 24 mg/dL (3-23) H D 10/27/16 13:15 Creatinine 0.95 mg/dL (0.4-1.4) 10/27/16 13:15 Est GFR (Non-Af Amer) 62 mL/min (60-130) 10/27/16 13:15 BUN/Creatinine Ratio 25.3 (9.0-21.6) H 10/27/16 13:15 Random Glucose 97 mg/dL (70-110) 10/27/16 13:15 Lactic Acid, Venous 0.9 mmol/L (0.4-1.9) 10/27/16 15:47 Calcium 9.1 mg/dL (7.9-10.9) 10/27/16 13:15 Calcium Adj for Albumin 9.7 mg/dL (8.4-10.2) 10/27/16 13:15 Total Bilirubin 1.1 mg/dL (0.0-1.1) 10/27/16 13:15 AST 26 U/L (0-48) 10/27/16 13:15 ALT 23 U/L (19-67) 10/27/16 13:15 Alkaline Phosphatase 128 U/L (50-170) 10/27/16 13:15 B-Natriuretic Peptide 65 pg/mL (5-325) 10/27/16 Unknown Total Protein 7.6 gm/dL (6.2-8.2) 10/27/16 13:15 Albumin 2.9 gm/dl (3.4-5.0) L 10/27/16 13:15 TSH 0.974 uIU/mL (0.358-3.74) 10/27/16 13:15 Urine Color Dark yellow 10/27/16 13:31 Urine Appearance Cloudy 10/27/16 13:31 Urine pH 5.5 pH (5.0-7.0) 10/27/16 13:31 Ur Specific [place] >=1.030 SP.GR. (1.005-1.010) 10/27/16 13:31 Urine Protein 30 mg/dL (NEGATIVE) H 10/27/16 13:31 Urine Glucose (UA) 100 mg/dL (NEGATIVE) H 10/27/16 13:31 Urine Ketones 5 mg/dL (NEGATIVE) 10/27/16 13:31 Urine Blood 50 /ul (NEGATIVE) H 10/27/16 13:31 Urine Nitrate Negative (NEGATIVE) 10/27/16 13:31 Urine Bilirubin Negative mg/dl (NEGATIVE) 10/27/16 13:31 Prot Sulfosalicylic Acd 1+ mg/dL (0) 10/27/16 13:31 Urine Urobilinogen >=8.0 EU/dl (NORMAL) H 10/27/16 13:31 Ur Leukocyte Esterase 100 /ul (NEGATIVE) H 10/27/16 13:31 Urine RBC 0-5 /hpf (0-5) 10/27/16 13:31 Urine WBC 5-10 /hpf (0-5) H 10/27/16 13:31 Ur Epithelial Cells 0-5 /hpf (0-5) 10/27/16 13:31 Urine Bacteria 2+ (NONE) H 10/27/16 13:31 Urine Culture Comments Culture to follow 10/27/16 13:31 Assessment/Plan - Assessment/Plan (1) UTI (urinary tract infection) Assessment: IV antibiotics. IV fluids. Follow labs. Estimate stay of 3 days. Problem: Acute (2) Dementia Problem: Chronic Qualifiers:
[2016-10-27] MEDS: POTASSIUM CHLORIDE 10 MEQ in NORMAL SALINE 1,000 ML IV SCH (18:30)
[2016-10-27] MEDS: HYDROPHILIC OINTMENT 454 APPL JAR TP SCH (20:07)
[2016-10-27] MEDS: MEMANTINE HCL 10 MG TABLET PO SCH (20:35)
[2016-10-27] MEDS: ALPRAZolam 0.5 MG TABLET PO SCH (20:35)
[2016-10-27] MEDS ORDERED: MIRTAZAPINE 15 MG TABLET PO SCH (21:00)
[2016-10-27] MEDS ORDERED: GENTAMICIN SULFATE 50 DROP BTL OP SCH (21:00)
[2016-10-27] MEDS ORDERED: ATORVASTATIN CALCIUM 40 MG TABLET PO SCH (21:00)
[2016-10-28] MEDS: POTASSIUM CHLORIDE 10 MEQ in NORMAL SALINE 1,000 ML IV SCH (04:17)
[2016-10-28 06:17] LABS: Hematocrit 38.2 % (37.0-47.0); Mean Cell Volume 97.9 fl (78-100); Mean Corpuscular Hemoglobin 30.8 pg (27-31); Mean Corpuscular Hgb Conc 31.4 g/dl (32-36); Mean Platelet Volume 10.1 fl (6.0-9.5); Neutrophil # 7.4 K/mm3 (1.3-6.0); Neutrophil % 71.1 % (42-75.0); Platelet Count 289 K/mm3 (150-450); Red Cell Distribution Width 12.3 % (11.5-14.0); White Blood Count 10.4 K/mm3 (4.0-10.5)
[2016-10-28 06:54] LABS: Albumin * 2.4 gm/dl (3.4-5.0); Anion Gap 16.5 mmol/L (6.8-13.8); BUN/Creatinine Ratio 15.7 (9.0-21.6); Ca. Corrected For Albumin 9.3 mg/dL (8.4-10.2); Calcium * 8.3 mg/dL (7.9-10.9); Carbon Dioxide 18.6 mmol/L (24-32.6); Potassium 4.1 mmol/L (3.4-4.6); Total Protein 7.1 gm/dL (6.2-8.2)
[2016-10-28 07:23] LABS: T4 Free * 1.44 ng/dL (0.76-1.46); TSH * 1.819 uIU/mL (0.358-3.74)
--- NOTE | 2016-10-28 08:03 | PN ---
Subjective - Date and Time Seen Date: 10/28/16 Time: 08:00 Subjective Narrative: Oriented only to self. Denies any problems. Objective - Review of Systems Generalized/Overall Review: Reports: No Symptoms Reported EENTM: Reports: No Symptoms Reported Respiratory: Reports: No Symptoms Reported Cardiac: Reports: No Symptoms Reported Abdominal: Reports: No Symptoms Reported Genitourinary Symptoms: Reports: No Symptoms Reported Musculoskeletal Complaints: Reports: No Symptoms Reported Neurological: Reports: No Symptoms Reported Skin: Reports: No Symptoms Reported Endocrine: Reports: No Symptoms Reported Misc: All systems neg except as marked - Vitals Vitals: Last Vital Signs Selected Entries 10/28/16 10/28/16 02:36 05:09 Temperature 36.5 C Temperature Temporal Artery Source Scan Pulse Rate 93 64 Pulse Rhythm Regular Respiratory 18 Rate Respiratory Normal Depth Respiratory Normal Effort Non-Labored Blood Pressure 100/52 Blood Pressure Supine Position O2 Sat by Pulse 96 Oximetry Oxygen Delivery Nasal Cannula Method Oxygen Flow 2 Rate - Abnormal Lab Findings Abnormal Lab Findings: Abnormal Lab Results 10/28/16 10/28/16 Range/Units 06:14 06:14 RBC 3.90 L (4.2-5.4) M/mm3 Hgb 12.0 L (12.5-16.0) gm/dL MCHC 31.4 L (32-36) g/dl MPV 10.1 H (6.0-9.5) fl Immature Gran % (Auto) 0.60 H (0.001-0.429) % Immature Gran # (Auto) 0.06 H (0.000-0.0310) K/mm3 Lymphocytes % 16.5 L (20-51) % Monocytes % 10.5 H (0.0-9) % Neutrophils # 7.4 H (1.3-6.0) K/mm3 Monocytes # 1.1 H (0.0-1.0) k/mm3 Chloride 107 H (97-106) mmol/L Carbon Dioxide 18.6 L (24-32.6) mmol/L Anion Gap 16.5 H (6.8-13.8) mmol/L Albumin 2.4 L (3.4-5.0) gm/dl - Exam Constitutional: Present: Alert, Oriented x3, Cooperative, Well developed, No distress, Obese ENT Exam: Present: normal ENT inspection, hearing grossly normal Neck: Present: normal inspection Cardiovascular/Chest: Present: regular rate, rhythm, no murmur Abdomen: Present: Normal bowel sounds, soft, nontender, nondistended, no rebound tenderness, no hepatospenomegaly, no masses, obese Extremity: Present: normal inspection, no pedal edema Skin Exam: Present: normal color, warm/dry, no cyanosis Neurologic: Present: alert Appearance: Present: appropriate appearance Eye contact: Present: cooperative Assessment/Plan Plan Narrative: IV antibiotics till culture reports then back to senior living. - Problems/Diagnosis (1) UTI (urinary tract infection) Problem: Acute (2) Dementia Problem: Chronic Qualifiers:
[2016-10-28] MEDS: HYDROPHILIC OINTMENT 454 APPL JAR TP SCH (08:44)
[2016-10-28] MEDS: MEMANTINE HCL 10 MG TABLET PO SCH (08:45)
[2016-10-28] MEDS: ALPRAZolam 0.5 MG TABLET PO SCH (08:54)
[2016-10-28] MEDS ORDERED: Vilazodone Hcl [Viibryd] 40 MG PO SCH (09:00)
[2016-10-28] MEDS ORDERED: NON-FORMULARY 1 DOSE DOSE (Vilazodone Hcl [Viibryd] 40 MG) PO SCH (09:00)
[2016-10-28] MEDS ORDERED: DONEPEZIL HCL 10 MG TABLET PO SCH ×2 (09:00)
[2016-10-28] MEDS ORDERED: LISINOPRIL 20 MG TABLET PO SCH ×2 (09:00)
[2016-10-28] MEDS ORDERED: ASPIRIN 325 MG TABLET.DR PO SCH (09:00)
[2016-10-28] MEDS ORDERED: ISOSORBIDE MONONITRATE 30 MG TAB.SR.24H PO SCH (09:00)
[2016-10-28] MEDS ORDERED: MEMANTINE HCL 10 MG TABLET PO SCH (09:00)
[2016-10-28 09:03] VITALS: BP 151/83
--- NOTE | 2016-10-28 13:36 | DS ---
(1) UTI (urinary tract infection) Problem: Acute Description of Stay: The patient is a 66-year-old female who was admitted for a urinary tract infection. She was treated with aggressive IV fluid hydration and IV antibiotics with rapid improvement in symptoms and clinical condition. The patient was [facility] to the [facility] in stable condition with instructions to complete 5 additional days of oral Levaquin. Procedures Performed: none Discharge Disposition: [facility] Disposition: [facility] [place], [place] Condition: Stable Discharge Activity: Activity as tolerated Discharge Diet: Resume usual diet Alf Therapy: Physicial Therapy, Occupation Therapy Referrals: Wellington Estrada MD [Primary Care Provider] - Complete Home Medications List: Complete Home Medication List: Aspirin [Aspirin EC] 325 mg PO DAILY 10/27/16 Atorvastatin Calcium 40 mg PO DAILY 10/27/16 Isosorbide Mononitrate [Imdur] 30 mg PO DAILY 10/27/16 Lisinopril [Zestril] 20 mg PO DAILY 10/27/16 ALPRAZolam [Xanax] 1 mg PO QID PRN tablet 11/09/16 ARIPiprazole [Abilify] 5 mg PO DAILY #30 tab 11/09/16 Acetaminophen [Tylenol] 650 mg PO QID PRN tablet 11/09/16 Dimethicone [Proshield Plus] 1 appl TP TID PRN #1 oint...g. 11/09/16
== END 2016-10-28 13:30 ==
LOC: ER 12:21 → INTOOBSV 14:13 → MS 14:13
PROVIDERS: ADMIT Allergy & Immunology; ATTEND Allergy & Immunology
DX: N39.0 Urinary tract infection, site not specified (principal); F03.90 Unspecified dementia, unspecified severity, without behavioral disturbance, psychotic disturbance, mood disturbance, and anxiety; I10 Essential (primary) hypertension; E78.5 Hyperlipidemia, unspecified; E66.01 Morbid (severe) obesity due to excess calories; Z68.36 Body mass index [BMI] 36.0-36.9, adult; Z87.891 Personal history of nicotine dependence
CPT/HCPCS: 36415; 71010; 80053; 81001; 83605; 83880; 84439; 84443; 85025; 87040; 87081; 87086; 96365; 96372; 96374; 99285; G0378

== ENCOUNTER 2016-11-07 18:06 | Observation (INO) | payer MEDICARE, OTHER ==
[2016-11-07 18:55] LABS: Hematocrit 37.5 % (37.0-47.0); Hemoglobin 12.1 gm/dL (12.5-16.0); Mean Corpuscular Hemoglobin 30.3 pg (27-31); Mean Corpuscular Hgb Conc 32.3 g/dl (32-36); Neutrophil # 5.6 K/mm3 (1.3-6.0); Neutrophil % 61.2 % (42-75.0); Platelet Count 609 K/mm3 (150-450); Red Blood Count 3.99 M/mm3 (4.2-5.4); Red Cell Distribution Width 12.6 % (11.5-14.0); White Blood Count 9.1 K/mm3 (4.0-10.5)
[2016-11-07 18:58] LABS: Urine Bilirubin Negative (NEGATIVE); Urine Blood Negative /ul (NEGATIVE); Urine Ketone Negative (NEGATIVE); Urine Nitrite Negative (NEGATIVE); Urine Protein Negative (NEGATIVE); Urine Specific Gravity 1.015 SP.GR. (1.005-1.010); Urine Urobilinogen Normal (NORMAL)
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
[2016-11-07 19:07] LABS: Urine Appearance Clear; Urine Bacteria TRACE; Urine Color Yellow; Urine RBC None Seen /hpf (0-5); Urine Renal Epithelial Cell Few - 1+ /hpf; Urine WBC 0-5 /hpf (0-5)
[2016-11-07 19:16] LABS: Cocaine Ur Negative (NEGATIVE); Urine Barbiturate Negative (NEGATIVE); Urine Opiates Negative (NEGATIVE); Urine PCP Negative (NEGATIVE); Urine THC Negative (NEGATIVE)
[2016-11-07 19:18] LABS: Urine Benzodiazepines Positive (NEGATIVE)
[2016-11-07 19:22] LABS: ALT 39 U/L (19-67); AST 25 U/L (0-48); Albumin * 3.2 gm/dl (3.4-5.0); Alkaline Phosphatase * 167 U/L (50-170); Anion Gap 13.8 mmol/L (6.8-13.8); BUN/Creatinine Ratio 15.2 (9.0-21.6); Bilirubin, Total 0.2 mg/dL (0.0-1.1); Blood Urea Nitrogen 12 mg/dL (3-23); Ca. Corrected For Albumin 9.1 mg/dL (8.4-10.2); Calcium * 8.8 mg/dL (7.9-10.9); Carbon Dioxide 24.7 mmol/L (24-32.6); Chloride 106 mmol/L (97-106); Glucose * 103 mg/dL (70-110); Potassium 3.5 mmol/L (3.4-4.6); Salicylate Less than 2.8 mg/dL (2.8-20.0); Sodium 141 mmol/L (132-142); TSH * 2.114 uIU/mL (0.358-3.74); Total Protein 7.8 gm/dL (6.2-8.2)
[2016-11-07 21:54] LABS: Folate 16.4 ng/mL (>5.4)
[2016-11-08] MEDS ORDERED: DONEPEZIL HCL 10 MG PO SCH (11:00)
[2016-11-08] MEDS ORDERED: MEMANTINE HCL 10 MG PO SCH (11:00)
[2016-11-08] MEDS ORDERED: ASPIRIN 325 MG TABLET.DR PO SCH (11:00)
[2016-11-08] MEDS ORDERED: NON-FORMULARY 1 DOSE DOSE (Vilazodone Hcl [Viibryd] 40 MG) PO SCH (11:00)
[2016-11-08] MEDS ORDERED: MIRTAZAPINE 30 MG PO SCH (11:00)
[2016-11-08] MEDS ORDERED: ATORVASTATIN CALCIUM 40 MG TABLET PO SCH (11:00)
[2016-11-08] MEDS ORDERED: ISOSORBIDE MONONITRATE 30 MG PO SCH (11:00)
[2016-11-08] MEDS ORDERED: LISINOPRIL 20 MG PO SCH (11:00)
[2016-11-08] MEDS ORDERED: ALPRAZolam 0.25 MG TABLET ONE (11:22)
[2016-11-08] MEDS: ALPRAZOLAM 0.5 MG PO SCH ×2 (11:26→15:05)
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
[2016-11-08] MEDS ORDERED: ALPRAZOLAM 0.5 MG PO SCH (13:00)
[2016-11-08] MEDS ORDERED: ARIPiprazole 10 MG TABLET PO STA (13:37)
--- NOTE | 2016-11-08 14:37 | CONS ---
HPI - History of Present Illness Allergies/Adverse Reactions: Allergies cephalexin [From Keflex] Adverse Reaction (Verified 10/27/16 16:26) metoprolol [From Toprol XL] Adverse Reaction (Verified 10/27/16 16:26) Home Medications: Home Medications Medication Instructions Recorded Last Taken ALPRAZolam [Xanax] 1 mg PO TID PRN 08/21/16 Unknown Mirtazapine [Remeron] 30 mg PO DAILY 08/21/16 Unknown ALPRAZolam [Xanax] 0.5 mg PO QID 10/27/16 Unknown Aspirin [Aspirin EC] 325 mg PO DAILY 10/27/16 Unknown Atorvastatin Calcium 40 mg PO DAILY 10/27/16 Unknown Donepezil HCl [Aricept] 10 mg PO DAILY 10/27/16 Unknown Gentamicin Sulfate [Gentamicin 1 drop OP HS 10/27/16 Unknown 0.3% Ophthalmic Solution] Isosorbide Mononitrate [Imdur] 30 mg PO DAILY 10/27/16 Unknown Lisinopril [Zestril] 20 mg PO DAILY 10/27/16 Unknown Memantine HCl [Namenda] 10 mg PO DAILY 10/27/16 Unknown Vilazodone HCl [Viibryd] 40 mg PO DAILY 10/27/16 Unknown - Patient's Past Medical History Patient History - Medical: Anemia, Anxiety, Dementia, Depression, UTI'S Patient History - Cardiac/Respiratory: Hypertension, Hyperlipidemia, Other Patient History - Cancer: Lung Patient History - Surgical Procedures: Other Patient History - Other: None - Family History Parents Family History - Medical: History Unknown Family History - Cardiac/Respiratory: History Unknown Family History - Cancer: History Unknown - Social History Living Situations: retirement Abuse History: No History of abuse Psych History: Hx of Anxiety, Hx of Depression Smoking Status: Never smoker Alcohol Use: none Drug Use: none - Immunizations Immunizations Up to Date: Yes History of Influenza Vaccine: More Information Required to Determine Medications - Medications Current Medications: Current Medications Aspirin (Aspirin Enteric Coated) 325 mg PO DAILY [facility] Stop: 12/08/16 11:01 Last Admin: 11/08/16 11:04 Dose: 325 mg Atorvastatin Calcium (Lipitor) 40 mg PO DAILY [facility] Stop: 12/08/16 11:01 Last Admin: 11/08/16 11:04 Dose: 40 mg Non-Formulary Medication (Alprazolam [Xanax]) 0.5 mg PO QID [facility] Stop: 12/08/16 11:01 Last Admin: 11/08/16 11:26 Dose: 0.5 mg Non-Formulary Medication (Donepezil Hcl [Aricept]) 10 mg PO DAILY [facility] Stop: 12/08/16 11:01 Last Admin: 11/08/16 11:07 Dose: 10 mg Non-Formulary Medication (Isosorbide Mononitrate [Imdur]) 30 mg PO DAILY [facility] Stop: 12/08/16 11:01 Last Admin: 11/08/16 11:06 Dose: 30 mg Non-Formulary Medication (Lisinopril [Zestril]) 20 mg PO DAILY [facility] Stop: 12/08/16 11:01 Last Admin: 11/08/16 11:07 Dose: 20 mg Non-Formulary Medication (Memantine Hcl [Namenda]) 10 mg PO DAILY [facility] Stop: 12/08/16 11:01 Last Admin: 11/08/16 11:26 Dose: 10 mg Non-Formulary Medication (Mirtazapine [Remeron]) 30 mg PO DAILY [facility] Stop: 12/08/16 11:01 Last Admin: 11/08/16 11:08 Dose: 30 mg Non-Formulary Medication (Vilazodone Hcl [Viibryd]) 40 mg PO DAILY [facility] Stop: 12/08/16 11:01 Last Admin: 11/08/16 11:27 Dose: Not Given Physical Examination - Exam Vital Signs: Vital Signs - Last Taken Temp 36.6 C 11/08/16 14:17 Pulse 96 11/08/16 14:17 Resp 18 11/08/16 14:17 BP 134/80 11/08/16 14:17 Pulse Ox 96 11/08/16 14:17
[2016-11-08] MEDS ORDERED: FLU VACC QS2017-18(6MOS UP)/PF 60 MCG/0.5 ML SYRINGE IM ONE (15:30)
[2016-11-08] MEDS ORDERED: ALPRAZolam 0.5 MG TABLET PO SCH (17:00)
[2016-11-08] MEDS ORDERED: ACETAMINOPHEN 325 MG TABLET PO PRN (18:27)
[2016-11-08] MEDS ORDERED: ALPRAZolam 0.5 MG TABLET PO PRN (18:28)
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
[2016-11-08] MEDS ORDERED: LORazepam 2 MG/ML DISP.SYRIN IV ONE (20:02)
[2016-11-08] MEDS ORDERED: ONDANSETRON HCL/PF 2 MG/ML VIAL IV PRN (20:22)
--- NOTE | 2016-11-09 08:11 | DS ---
(1) Lung cancer Problem: Chronic Qualifiers: Laterality: unspecified laterality (2) Binswanger's dementia Problem: Chronic (3) Aggressive behavior of adult Problem: Acute (4) HLD (hyperlipidemia) Problem: Chronic Qualifiers: Hyperlipidemia type: unspecified Qualified Code(s): E78.5 - Hyperlipidemia , unspecified (5) HTN (hypertension) Problem: Chronic Qualifiers: Hypertension type: essential hypertension Qualified Code(s): I10 - Essential (primary) hypertension (6) Diarrhea Problem: Acute Qualifiers: Diarrhea type: unspecified type Qualified Code(s): R19.7 - Diarrhea, unspecified Description of Stay: Stable, with no agressive behavior with medication change. Procedures Performed: none Discharge Disposition: [facility] Disposition: [facility] Condition: Fair Discharge Activity: Activity as tolerated Discharge Diet: General/regular food Discharge Level of Care:: SNF - Skilled Nursing Referrals: Wellington Estrada MD [Primary Care Provider] - Consultation Done:: Dr. Andujar, psychiatry Problem Oriented Discharge Instructions to Patient/Family: Vascular Dementia, Impulse Control Disorders Additional Patient Instructions (free text): Avoid Namenda, Aricept, Remeron, SSRIs, SNRIs Prescriptions (Any new or edited meds): ARIPiprazole [Abilify] 5 mg PO DAILY #30 tab Dimethicone [Proshield Plus] 1 appl TP TID PRN #1 oint...g. PRN Reason: bottom irritation Complete Home Medications List: Complete Home Medication List: Aspirin [Aspirin EC] 325 mg PO DAILY 10/27/16 Atorvastatin Calcium 40 mg PO DAILY 10/27/16 Isosorbide Mononitrate [Imdur] 30 mg PO DAILY 10/27/16 Lisinopril [Zestril] 20 mg PO DAILY 10/27/16 ALPRAZolam [Xanax] 1 mg PO QID PRN tablet 11/09/16 ARIPiprazole [Abilify] 5 mg PO DAILY #30 tab 11/09/16 Acetaminophen [Tylenol] 650 mg PO QID PRN tablet 11/09/16 Dimethicone [Proshield Plus] 1 appl TP TID PRN #1 oint...g. 11/09/16
[2016-11-09 08:22] VITALS: BP 92/51
[2016-11-09] MEDS ORDERED: MEMANTINE HCL 10 MG PO SCH (09:00)
[2016-11-09] MEDS ORDERED: MIRTAZAPINE 15 MG TABLET PO SCH (09:00)
[2016-11-09] MEDS ORDERED: LISINOPRIL 20 MG PO SCH (09:00)
[2016-11-09] MEDS ORDERED: LISINOPRIL 20 MG TABLET PO SCH (09:00)
[2016-11-09] MEDS ORDERED: Vilazodone Hcl [Viibryd] 40 MG PO SCH (09:00)
[2016-11-09] MEDS ORDERED: ISOSORBIDE MONONITRATE 30 MG TAB.SR.24H PO SCH (09:00)
[2016-11-09] MEDS ORDERED: DONEPEZIL HCL 10 MG TABLET PO SCH (09:00)
[2016-11-09] MEDS ORDERED: MIRTAZAPINE 30 MG PO SCH (09:00)
[2016-11-09] MEDS ORDERED: MEMANTINE HCL 10 MG TABLET PO SCH (09:00)
[2016-11-09] MEDS ORDERED: NON-FORMULARY 1 DOSE DOSE (Vilazodone Hcl [Viibryd] 40 MG) PO SCH (09:00)
[2016-11-09] MEDS ORDERED: ISOSORBIDE MONONITRATE 30 MG PO SCH (09:00)
[2016-11-09] MEDS ORDERED: ATORVASTATIN CALCIUM 40 MG TABLET PO SCH ×2 (09:00)
[2016-11-09] MEDS ORDERED: DONEPEZIL HCL 10 MG PO SCH (09:00)
[2016-11-09] MEDS ORDERED: ASPIRIN 325 MG TABLET.DR PO SCH ×2 (09:00)
== END 2016-11-09 10:20 ==
LOC: ER 18:06 → MS 11-08 14:32
PROVIDERS: ADMIT Allergy & Immunology; ATTEND Allergy & Immunology
DX: I67.3 Progressive vascular leukoencephalopathy (principal); F03.91 Unspecified dementia, unspecified severity, with behavioral disturbance; C34.90 Malignant neoplasm of unspecified part of unspecified bronchus or lung; R19.7 Diarrhea, unspecified; I10 Essential (primary) hypertension; E78.5 Hyperlipidemia, unspecified
CPT/HCPCS: 36415; 80053; 80307; 81001; 82607; 82746; 84443; 85025; 87081; 93005; 96374; 96375; 99284; G0378; G0480; G0481; J2405